=== PATIENT | female | born 1945 | race Caucasian/White ===

== ENCOUNTER 2018-03-05 09:17 | Observation (INO) ==
[2018-03-05] MEDS ORDERED: Sodium Chloride 0.9% 1,000 ML PRIMARY IV ONE (09:31)
[2018-03-05] MEDS ORDERED: MORPHINE SULFATE 4 MG/1 ML IVP ONE (09:31)
[2018-03-05] MEDS ORDERED: ONDANSETRON 4 MG/2 ML VIAL IVP ONE (09:31)
[2018-03-05] MEDS ORDERED: DIPH,PERTUSS,TET(ADACEL) VAC/PF 0.5 ML (Tdap) IM ONE (09:31)
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
[2018-03-05 10:01] LABS: BASOPHILS # (AUTO) 0.06 10*3/UL; BASOPHILS % (AUTO) 0.2 % (0-1); EOSINOPHILS # (AUTO) 0.09 10*3/UL; EOSINOPHILS % (AUTO) 0.3 % (0-8); Hematocrit [HCT] 46.3 % (37.0-47.0); Hemoglobin [HGB] 14.9 g/dL (12.0-16.0); LYMPHOCYTES # (AUTO) 4.34 10*3/uL; MEAN CORPUSCULAR HGB CONC 32.2 g/dL (33-37); MEAN CORPUSCULAR VOLUME 93.2 FL (81-99); MEAN PLATELET VOLUME 11.1 FL (7.4-12.2); MONOCYTES # (AUTO) 2.03 10*3/UL (0.3-0.8); MONOCYTES % (AUTO) 7.8 % (5-15); NEUTROPHILS # (AUTO) 19.34 10*3/UL; NEUTROPHILS % (AUTO) 74.4 % (50-80); PLATELET MORPHOLOGY COMMENT NORMAL MORPHOLOGY (NORM); RBC MORPHOLOGY COMMENT NORMAL MORPHOLOGY (NORM); RED BLOOD COUNT 4.97 10^6/uL (4.20-5.40); WBC MORPHOLOGY COMMENT NORMAL MORPHOLOGY (NORM)
[2018-03-05 10:52] LABS: BLOOD UREA NITROGEN 16 mg/dL (7-22); BUN/CREATININE RATIO 22.85 (6-20); LIPASE 193 IU/L (23-300); SERUM ALBUMIN 4.5 g/dL (3.5-4.8)
--- NOTE | 2018-03-05 10:57 | EKG ---
[address] [address] Measurements Intervals [place] Rate: 92 P: 76 IN: 230 QRS: 43 QRSD: 82 T: 69 QT: 364 QTc: 413 Interpretive Statements SINUS RHYTHM WITH FIRST DEGREE AV BLOCK WITH OCCASIONAL SUPRAVENTRICULAR PREMATURE COMPLEXES No previous ECG available for comparison Electronically Signed On 03-05-18 16:08:09 [facility] by Osmel Mckenzie [email or web address]
--- NOTE | 2018-03-05 11:18 | DI ---
LEFT ELBOW, 03/05/2018 11:04 AM: Clinical History: Trauma. Comparison Study: None at this facility. Views: A single lateral projection is submitted. Soft Tissues: Extensive soft tissue swelling is present. Joints: The articular surfaces of the radial head and of the distal humerus are normal. Bone: There is dislocation of the elbow joint with a fracture of the coronoid process. The radial hea d and neck are intact. The radius and ulna are displaced either laterally or medially and the distal humerus descends posterior to the olecranon by 3-4 cm. Reading: Fracture dislocation of the elbow as above.
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
--- NOTE | 2018-03-05 11:24 | DI ---
LEFT SHOULDER, 03/05/2018 9:30 AM: Clinical History: Trauma. Comparison Study: None at this facility. Views: 2 views. Soft Tissues: No soft tissue swelling. Joints: Cartilaginous surfaces intact. No joint effusion. Bone: No fracture or dislocation of the shoulder but there is a dislocation of the left elbow. The ra dius and ulna are displaced laterally. Readin. Normal left shoulder exam. 2. Dislocation of the left elbow with displacement of the radius and ulna laterally.
--- NOTE | 2018-03-05 11:30 | DI ---
RIGHT FOREARM, 03/05/2018 9:25 AM: Clinical History: Trauma. Comparison Study: None at this facility. Views: AP and lateral. 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 There is widening of the distance between the scaphoid and lunate bone suggesting injur y to the scapholunate ligament of the wrist. Bone: No fracture or dislocation. Readin. No acute fracture or dislocation is identified. 2. Widening of the joint space between the scaphoid and lunate suggesting injury to the scapholunate ligament. 3. Extensive degenerative arthritic change of the distal radioulnar joint with erosive changes of th e distal ulna.
--- NOTE | 2018-03-05 11:33 | DI ---
RIGHT HAND, 03/05/2018 9:25 AM: Clinical History: Trauma. Comparison Study: None at this facility. Views: 3 views. Soft Tissues: Soft tissue swelling over the dorsal surface of the metacarpal bones. Joints: Osteoarthritic changes of the triscaphe joint and the PIP and DIP joints. The right forearm e xam showed widening of the joint space between the scaphoid and lunate suggesting injury to the scaph olunate ligament. Bone: No fracture or dislocation. Readin. No acute fracture or dislocation. 2. Arthritic changes of the PIP and DIP joints and the triscaphe joint.
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
[2018-03-05 11:57] LABS: BILIRUBIN,URINE NEGATIVE (NEG); CLARITY,URINE CLEAR (CLEAR); COLOR,URINE YELLOW (Y); GLUCOSE, URINE (UA) NEGATIVE (NEG); OCCULT BLOOD,URINE LARGE (NEG); PH,URINE 5.5 (5.0-8.5); PROTEIN,URINE NEGATIVE (NEG); UROBILINOGEN,URINE 0.2 EU/dL (0.2)
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
[2018-03-05 12:18] LABS: AMPHETAMINE SCREEN NEGATIVE (NEG); METHADONE URINE SCREEN NEGATIVE (NEG); METHAMPHETAMINES SCREEN,URINE NEGATIVE (NEG); OPIATE SCREEN,URINE POSITIVE (NEG); URINE SAMPLE TYPE CATH SPECIMEN; URINE SAMPLE TYPE CLEAN CATCH URINE
[2018-03-05 12:19] LABS: CANNABINOID SCREEN,URINE NEGATIVE (NEG); COCAINE SCREEN NEGATIVE (NEG)
[2018-03-05] MEDS ORDERED: LIDOCAINE 2%/ EPI 1:200,000 - 20 ML VIAL ONE (12:37)
[2018-03-05] MEDS ORDERED: MIDAZOLAM HCL 2 MG/2 ML VIAL ONE (12:37)
[2018-03-05] MEDS ORDERED: fentaNYL Inj 100 MCG/2 ML VIAL ONE (12:38)
[2018-03-05] MEDS ORDERED: BUPivacaine Inj 0.5% PF (5mg/ml) 10ml vial ONE (12:38)
[2018-03-05] MEDS ORDERED: LIDOCAINE W/ SODIUM BICARB 0.5 ML SYR ONE (12:40)
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
--- NOTE | 2018-03-05 14:02 | DI ---
LEFT ELBOW, 03/05/2018 1:04 PM: Clinical History: Trauma. Dislocation of the elbow. Repeat prereduction views were obtained as well a s post reduction views. Comparison Study: None at this facility. Views: AP and lateral post reduction views. Soft Tissues: Extensive soft tissue edema in the subcutaneous fat is present. Joints: The prereduction views show a bony density along the posterior aspect of the distal humerus. There is dislocation of the elbow with displacement of the radius and ulna laterally. Bone: The initial views were suspicious for a fracture of the coronoid process but on these views, th e coronoid is intact. Following a regional block, films are obtained. On the initial AP projections, alignment and position appear anatomic and there is a bony density near the medial epicondyle consist ent with an avulsion fracture. Subsequent sequential lateral films show loss of reduction with the fi nal film showing anatomic alignment and position. There is a bony fragment posterior to the olecranon process. Reading: Status post reduction of the elbow dislocation although apparently this reduction could not be mainta ined and required additional manipulation. A bony fragment is present posterior to the olecranon and near the medial epicondyle.
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
[2018-03-05] MEDS ORDERED: MORPHINE SULFATE 2 MG/1 ML IVP PRN (15:15)
[2018-03-05] MEDS ORDERED: ACETAMINOPHEN 325 MG TABLET PO PRN (15:15)
[2018-03-05] MEDS ORDERED: DOCUSATE 100 MG CAPSULE PO PRN (15:15)
[2018-03-05] MEDS ORDERED: CALCIUM CARBONATE 500 MG (TUMS) CHEWABLE TABLET PO PRN (15:15)
[2018-03-05] MEDS ORDERED: ONDANSETRON 4 MG/2 ML VIAL IVP PRN (15:15)
[2018-03-05] MEDS ORDERED: ALBUTEROL SULFATE 8.5 GM HFA INHALER INH SCH (15:15)
[2018-03-05] MEDS ORDERED: Ondansetron ODT Tab 4 MG TAB PO PRN (15:15)
[2018-03-05] MEDS ORDERED: LIDOCAINE W/ SODIUM BICARB 0.5 ML SYR SUBD PRN (15:15)
[2018-03-05] MEDS: HYDROcodone/IBUPROFEN 7.5 MG/200 MG TABLET PO PRN ×2 (17:19→20:43)
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
[2018-03-05] MEDS ORDERED: ALBUTEROL SULFATE 2.5 MG/3 ML NEB SCH (19:00)
[2018-03-05] MEDS ORDERED: ALBUTEROL SULFATE 2.5 MG/3 ML NEB PRN (19:41)
[2018-03-06] MEDS: KETOROLAC 15 MG/1 ML VIAL IVP PRN ×2 (01:55→07:59)
[2018-03-06] MEDS ORDERED: HYDROCHLOROTHIAZIDE 25 MG TABLET PO SCH (09:00)
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
[2018-03-06 12:30] VITALS: BP 108/53; RESP 22; TEMP 98; O2SAT 94
[2018-03-06] MEDS: HYDROcodone/IBUPROFEN 7.5 MG/200 MG TABLET PO PRN (13:38)
[2018-03-06] MEDS ORDERED: IBUPROFEN 600 MG TABLET PO PRN (16:00)
== END 2018-03-06 14:12 | disposition home or self-care (01) ==
LOC: MED/SURG 09:17 → ER 09:17
PROVIDERS: ADMIT Surgery; ATTEND Surgery